=== PATIENT | female | born 1985 | race Asian ===

== ENCOUNTER 2017-07-04 05:45 | Inpatient (IN) | payer SELFPAY ==
[~2017-07-04] VITALS: Ht 157.5 cm; Wt 62.6 kg
[2017-07-04 07:13] VITALS: BP 113/73
[2017-07-04] MEDS ORDERED: LACTATED RINGERS 1,000 ML IV SCH (07:34)
[2017-07-04] MEDS ORDERED: OXYTOCIN 20 UNITS in LACTATED RINGERS 1,000 ML IV SCH (07:35)
[2017-07-04] MEDS ORDERED: NALBUPHINE HYDROCHLORIDE 10 MG/ML VIAL IVP PRN (07:35)
[2017-07-04] MEDS ORDERED: METHYLERGONOVINE 0.2 MG/ML AMP IM PRN ×2 (07:35→13:50)
[2017-07-04] MEDS ORDERED: PROMETHAZINE 25 MG/ML VIAL IVP PRN (07:35)
[2017-07-04] MEDS ORDERED: CARBOPROST 250 MCG/ML AMP IM PRN (07:35)
[2017-07-04] MEDS ORDERED: OXYTOCIN 10 UNITS/ML VIAL IM SCH (07:35)
[2017-07-04 08:06] LABS: BASOPHILS # (AUTO) 0.1 K/uL (0.00-0.22); BASOPHILS % (AUTO) 1.9 % (0.0-2.0); EOSINOPHILS # (AUTO) 0.1 K/uL (0-0.4); EOSINOPHILS % (AUTO) 1.9 % (0.0-4.0); HEMATOCRIT 37.1 % (36-48); HEMOGLOBIN 12.2 g/dL (12.0-16.0); LYMPHOCYTES # (AUTO) 1.3 K/uL (2.5-16.5); LYMPHOCYTES % (AUTO) 17.1 % (20.5-51.1); MEAN CORPUSCULAR HEMOGLOBIN 29 pg (27-31); MEAN CORPUSCULAR HGB CONC 33 g/dL (33-37); MEAN CORPUSCULAR VOLUME 89 fL (80-94); MONOCYTES # (AUTO) 0.5 K/uL (0.8-1.0); MONOCYTES % (AUTO) 6.6 % (1.7-9.3); NEUTROPHILS # (AUTO) 5.7 K/uL (1.8-7.7); NEUTROPHILS % (AUTO) 72.5 % (42.2-75.2); PLATELET COUNT (AUTO) 135 K/uL (140-450); RED BLOOD CELL COUNT(AUTO) 4.17 MIL/uL (4.20-5.40); RED CELL DISTRIBUTION WIDTH 14.6 % (11.6-13.7); WHITE BLOOD COUNT (AUTO) 7.7 K/uL (4.8-10.8)
--- NOTE | 2017-07-04 08:10 | NUR ---
PATIENT HAS BEEN SCREENED AND CATEGORIZED LOW NUTRITION RISK. PATIENT WILL BE SEEN WITHIN 7 DAYS OF ADMISSION. 07/10/[address]
[2017-07-04 08:13] LABS: APPEARANCE,URINE CLEAR (CLEAR); BILIRUBIN,URINE NEGATIVE (NEGATIVE); COLOR,URINE YELLOW (YELLOW); LEUKOCYTE ESTERASE ,URINE NEGATIVE (NEGATIVE); NITRITE, URINE NEGATIVE (NEGATIVE); UGLUCOSE NEGATIVE (NEGATIVE)
[2017-07-04] MEDS ORDERED: ROPIVACAINE 0.2%/NS PREMIX 250 ML EPI ONE (08:30)
[2017-07-04] MEDS ORDERED: ROPIVACAINE 0.2%/NS PREMIX 250 ML EPI SCH (08:40)
[2017-07-04 08:57] LABS: BLOOD, URINE 1+ (NEGATIVE)
[2017-07-04 08:58] LABS: RBC,URINE 0-5 (RARE) /HPF (0-5); WBC,URINE 0-5 (RARE) /HPF (0-5)
[2017-07-04] MEDS ORDERED: OXYTOCIN 10 UNITS/ML VIAL ONE (11:31)
[2017-07-04] MEDS ORDERED: TEMAZEPAM 15 MG CAP PO PRN (13:50)
[2017-07-04] MEDS ORDERED: OXYTOCIN 10 UNITS/ML VIAL IM PRN (13:50)
[2017-07-04] MEDS ORDERED: IBUPROFEN 800 MG TAB PO PRN ×2 (13:50)
[2017-07-04] MEDS ORDERED: BENZOCAINE/MENTHOL 20%-0.5% 60 GM CAN TP PRN (13:50)
[2017-07-04] MEDS ORDERED: MEASLES, MUMPS, AND RUBELLA 1 VIAL SQVAC PRN (13:50)
[2017-07-04] MEDS ORDERED: oxyCODONE/APAP 5/325 MG 1 TAB TAB PO PRN (13:50)
[2017-07-04] MEDS ORDERED: DOCUSATE SOD/SENNA 50/8.6 MG 1 TAB PO SCH (21:00)
[2017-07-04] MEDS: BETHANECHOL 25 MG TAB PO SCH (22:24)
[2017-07-04] MEDS: HYDROcodone/APAP 5/325 MG 1 TAB TAB PO PRN (23:21)
[2017-07-05] MEDS: HYDROcodone/APAP 5/325 MG 1 TAB TAB PO PRN (06:14)
[2017-07-05 07:03] LABS: HEMATOCRIT 34.8 % (36-48); HEMOGLOBIN 11.2 g/dL (12.0-16.0)
[2017-07-05 07:13] LABS: RAPID PLASMA REAGIN NON-REACTIVE (Non Reactiv)
[2017-07-05] MEDS: BETHANECHOL 25 MG TAB PO SCH ×2 (09:10→21:00)
[2017-07-06] MEDS ORDERED: IBUP800T99 PO (11:19)
== END 2017-07-06 12:05 | disposition home or self-care (01) | DRG 775 ==
LOC: MLD 05:45 → MFCC 15:45
PROVIDERS: ADMIT Obstetrics & Gynecology; ATTEND Obstetrics & Gynecology
PROC: 10E0XZZ Delivery of Products of Conception, External Approach (ICD-10-PCS; principal; 2017-07-04)
PROC: 10907ZC Drainage of Amniotic Fluid, Therapeutic from Products of Conception, Via Natural or Artificial Opening (ICD-10-PCS; 2017-07-04)
PROC: 0HQ9XZZ Repair Perineum Skin, External Approach (ICD-10-PCS; 2017-07-04)
PROC: 00HU33Z Insertion of Infusion Device into Spinal Canal, Percutaneous Approach (ICD-10-PCS; 2017-07-04)
PROC: 3E0R3CZ (ICD-10-PCS; 2017-07-04)
PROC: 3E0234Z Introduction of Serum, Toxoid and Vaccine into Muscle, Percutaneous Approach (ICD-10-PCS; 2017-07-05)
DX: O70.0 First degree perineal laceration during delivery (principal); Z23 Encounter for immunization; Z37.0 Single live birth; Z3A.38 38 weeks gestation of pregnancy
CPT/HCPCS: 36415; 51702; 59409; 81001; 85018; 85025; 86592; 86886; 86900; 86901; 90715; C1758; J2590; J2795; J7120